=== PATIENT | male | born 1955 | race Caucasian/White ===

== ENCOUNTER → 2016-09-01 | Outpatient (REF) | payer OTHER ==
[2016-09-01 18:03] LABS: FOLATE > 24.0 NG/ML; VITAMIN B12 LEVEL 501 PG/ML
== END ==
LOC: M LAB REF 16:25
PROVIDERS: ATTEND Internal Medicine
DX: R41.3 Other amnesia (principal); E78.2 Mixed hyperlipidemia

== ENCOUNTER → 2016-11-17 | Outpatient (CLI) | payer OTHER ==
[2016-11-19 00:07] LABS: Lyme Disease IgG/IgM Antibodie <0.91 ISR (0.00-0.90); Lyme Disease IgM Ab Quantitati <0.80 index (0.00-0.79)
== END ==
LOC: M LAB 09:01
PROVIDERS: ATTEND Internal Medicine Cardiovascular Disease
DX: A69.20 Lyme disease, unspecified (principal)

== ENCOUNTER → 2017-01-23 | Outpatient (CLI) | payer OTHER ==
[2017-01-23 13:16] LABS: MEAN CORPUSCULAR HEMOGLOBIN 31.8 pg (27.0-33.0); MEAN CORPUSCULAR HGB CONC 34.1 g/dl (32.0-36.5); MEAN CORPUSCULAR VOLUME 93.3 fl (80.0-96.0); RED CELL DISTRIBUTION WIDTH 13.1 % (11.5-14.5); WHITE BLOOD COUNT 10.2 K/mm3 (4.0-10.0)
[2017-01-23 13:38] LABS: EOSINOPHILS 3 % (0-5)
[2017-01-24 15:12] LABS: PSA TOTAL 0.9 ng/mL (0.0-4.0)
== END ==
LOC: M WUC 12:17
PROVIDERS: ATTEND Physician Assistant
DX: R35.0 Frequency of micturition (principal)

== ENCOUNTER → 2017-02-26 | Outpatient (REF) | payer OTHER | LOC: M SMT 13:32 | PROVIDERS: ATTEND Nurse Practitioner Women's Health | DX: R30.0 Dysuria (principal) ==

== ENCOUNTER → 2017-03-03 | Outpatient (REF) | payer OTHER | LOC: M LAB REF 17:36 | PROVIDERS: ATTEND Internal Medicine | DX: E78.00 Pure hypercholesterolemia, unspecified (principal) ==

== ENCOUNTER → 2017-04-07 | Outpatient (REF) | payer OTHER ==
[2017-04-07 15:16] LABS: BASO # 0.1 10^3/uL (0.0-0.2); BASO % 0.9 % (0.0-1.0); EOS # 0.4 10^3/uL (0.0-0.50); EOS % 5.7 % (0.0-3.0); IMMATURE GRANULOCYTE % 0.3 % (0-0); LYMPH # 1.5 10^3/uL (1.5-4.5); LYMPH % 23.5 % (24.0-44.0); MEAN CORPUSCULAR HEMOGLOBIN 31.5 pg (27.0-33.0); MEAN CORPUSCULAR HGB CONC 33.4 g/dl (32.0-36.5); MEAN CORPUSCULAR VOLUME 94.2 fl (80.0-96.0); MONO # 0.8 10^3/uL (0.0-0.8); NEUTROPHILS # 3.7 10^3/uL (1.8-7.7); NEUTROPHILS % 57.6 % (36.0-66.0); PLATELET COUNT, AUTOMATED 306 10^3/uL (150-450); RED CELL DISTRIBUTION WIDTH 13.2 % (11.5-14.5); WHITE BLOOD COUNT 6.5 10^3/uL (4.0-10.0)
[2017-04-07 15:21] LABS: ADD MORPHOLOGY? NO
[2017-04-07 15:43] LABS: VITAMIN B12 LEVEL 474 PG/ML (247-911)
[2017-04-07 15:44] LABS: FOLATE > 24.0 NG/ML (>5.4)
[2017-04-07 16:16] LABS: ALBUMIN 3.6 GM/DL (3.2-5.2); ALBUMIN/GLOBULIN RATIO 0.92 (1.00-1.93); ALKALINE PHOSPHATASE 52 U/L (45-117); ALT/SGPT 24 U/L (12-78); ANION GAP 7 MEQ/L (8-16); AST/SGOT 22 U/L (15-37); BILIRUBIN,TOTAL 0.4 MG/DL (0.2-1.0); BLOOD UREA NITROGEN 13 MG/DL (7-18); CALCIUM LEVEL 9.2 MG/DL (8.8-10.2); CARBON DIOXIDE LEVEL 29 MEQ/L (21-32); CHLORIDE LEVEL 102 MEQ/L (98-107); CREATININE FOR GFR 0.89 MG/DL (0.70-1.30); GLOMERULAR FILTRATION RATE > 60.0 (>49); GLUCOSE, FASTING 107 MG/DL (80-110); POTASSIUM SERUM 4.5 MEQ/L (3.5-5.1); SODIUM LEVEL 138 MEQ/L (136-145); TOTAL PROTEIN 7.5 GM/DL (6.4-8.2)
[2017-04-11 08:07] LABS: VITAMIN E LEVEL 48.1 mg/L (5.3-17.5)
== END ==
LOC: M LABNEURO 10:02
PROVIDERS: ATTEND Psychiatry & Neurology Neurology
DX: R41.3 Other amnesia (principal)

== ENCOUNTER → 2017-05-27 | Outpatient (CLI) | payer OTHER ==
--- NOTE | 2017-05-27 11:03 | REP ---
Clinical: Rule out foreign body. Technique: AP, Ayoub, lateral, Rheese, SMV views of the orbits. Findings: The osseous structures are normal. Dental amalgam is identified. No further radiodense foreign body is appreciated. Impression: No significant orbital foreign body material identified. Signed by Jacques De La Cruz MD 05/27/2017 10:55 A
== END ==
LOC: M ADAMS 09:52
PROVIDERS: ATTEND Psychiatry & Neurology Neurology
DX: T15.90XA Foreign body on external eye, part unspecified, unspecified eye, initial encounter (principal); Y92.89 Other specified places as the place of occurrence of the external cause

== ENCOUNTER → 2018-02-23 | Outpatient (REF) | payer OTHER ==
[2018-02-25 08:15] LABS: LDL DIRECT 214 mg/dL (0-99)
== END ==
LOC: M LAB REF 20:32
DX: E78.1 Pure hyperglyceridemia (principal)
CPT/HCPCS: 83721

== ENCOUNTER → 2018-11-12 | Outpatient (REF) | payer MEDICARE, OTHER ==
[2018-11-13 08:06] LABS: LDL DIRECT 181 mg/dL (0-99)
== END ==
LOC: M LAB REF 13:36
PROVIDERS: ATTEND Internal Medicine
DX: E78.00 Pure hypercholesterolemia, unspecified (principal)

== ENCOUNTER → 2019-05-24 | Outpatient (REF) | payer MEDICARE, OTHER ==
[2019-05-25 08:07] LABS: LDL DIRECT 166 mg/dL (0-99)
== END ==
LOC: M LAB REF 13:53
PROVIDERS: ATTEND Internal Medicine
DX: E78.00 Pure hypercholesterolemia, unspecified (principal)

== ENCOUNTER → 2020-04-09 | Outpatient (REF) | payer MEDICARE, OTHER ==
[2020-04-11 04:11] LABS: LDL DIRECT 154 mg/dL (0-99)
== END ==
LOC: M LAB REF 16:25
PROVIDERS: ATTEND Internal Medicine
DX: E78.00 Pure hypercholesterolemia, unspecified (principal)

== ENCOUNTER → 2021-02-28 | Outpatient (REF) | payer MEDICARE, OTHER ==
[2021-03-02 08:09] LABS: LDL DIRECT 95 mg/dL (0-99)
== END ==
LOC: M LAB REF 17:04
PROVIDERS: ATTEND Internal Medicine
DX: E78.00 Pure hypercholesterolemia, unspecified (principal)

== ENCOUNTER → 2021-06-05 | Outpatient (REF) | payer MEDICARE, OTHER ==
[2021-06-07 08:12] LABS: LDL DIRECT 114 mg/dL (0-99)
== END ==
LOC: M LAB REF 16:51
PROVIDERS: ATTEND Internal Medicine
DX: E78.2 Mixed hyperlipidemia (principal)

== ENCOUNTER → 2021-09-11 | Outpatient (REF) | payer MEDICARE, OTHER ==
[2021-09-13 04:08] LABS: LDL DIRECT 78 mg/dL (0-99)
== END ==
LOC: M LAB REF 16:13
PROVIDERS: ATTEND Internal Medicine
DX: E78.2 Mixed hyperlipidemia (principal)

== ENCOUNTER → 2021-12-25 | Outpatient (REF) | payer MEDICARE, OTHER ==
[2021-12-27 08:10] LABS: LDL DIRECT 63 mg/dL (0-99)
== END ==
LOC: M LAB REF 16:20
PROVIDERS: ATTEND Internal Medicine
DX: E78.2 Mixed hyperlipidemia (principal)

== ENCOUNTER → 2022-06-16 | Outpatient (REF) | payer MEDICARE, OTHER | LOC: M LAB REF 16:10 | PROVIDERS: ATTEND Internal Medicine | DX: E78.2 Mixed hyperlipidemia (principal) ==

== ENCOUNTER → 2023-02-10 | Outpatient (REF) | payer MEDICARE, OTHER | LOC: M LAB REF 16:27 | PROVIDERS: ATTEND Internal Medicine | DX: R53.83 Other fatigue (principal); R68.83 Chills (without fever) ==

== ENCOUNTER → 2023-02-13 | Outpatient (REF) | payer MEDICARE, OTHER | LOC: M LAB REF 16:13 | PROVIDERS: ATTEND Internal Medicine | DX: D61.818 Other pancytopenia (principal); R50.9 Fever, unspecified ==

== ENCOUNTER → 2023-05-20 | Day surgery (SDC) | payer MEDICARE, OTHER ==
[~2023-05-20] VITALS: Ht 162.6 cm; Wt 60.3 kg
[~2023-05-20] MED LIST: ALLO100T PO; ASPI81TA26 PO; FLUT50SP17; FOLI1TAB11 PO; LEXA1TAB PO; MONT10TA97 PO; NS 1,000 ML IV ONE; OMEP40CA5 PO; ROSU40TA4 PO; SOTA80TA32 PO; propofoL 200 MG/20 ML VIAL As Ordered ONE
[2023-05-20 07:54] VITALS: TEMP 97.9
[2023-05-20 08:10] VITALS: BP 129/86; O2SAT 97
== END | disposition home or self-care (01) ==
LOC: M OPP 06:32
PROVIDERS: ATTEND Internal Medicine Gastroenterology
DX: Z12.11 Encounter for screening for malignant neoplasm of colon (principal); K64.0 First degree hemorrhoids; K57.30 Diverticulosis of large intestine without perforation or abscess without bleeding; Z79.82 Long term (current) use of aspirin; Z79.899 Other long term (current) drug therapy; I10 Essential (primary) hypertension; E78.5 Hyperlipidemia, unspecified; Z95.3 Presence of xenogenic heart valve

== ENCOUNTER → 2023-06-16 | Outpatient (REF) | payer MEDICARE, OTHER ==
[~2023-06-16] MED LIST changes: -FLUT50SP17; +FLUTISP; -NS 1,000 ML IV ONE; -propofoL 200 MG/20 ML VIAL As Ordered ONE
[2023-06-18 04:08] LABS: LDL DIRECT 90 mg/dL (0-99)
== END ==
LOC: M LAB REF 16:20
PROVIDERS: ATTEND Internal Medicine
DX: E78.00 Pure hypercholesterolemia, unspecified (principal)

== ENCOUNTER → 2023-10-14 | Outpatient (CLI) | payer MEDICARE, OTHER | LOC: M CARPUL 08:25 | PROVIDERS: ATTEND Internal Medicine | DX: I08.3 Combined rheumatic disorders of mitral, aortic and tricuspid valves (principal); I77.810 Thoracic aortic ectasia ==

== ENCOUNTER → 2023-12-08 | Outpatient (REF) | payer MEDICARE, OTHER ==
[~2023-12-08] MED LIST changes: -ROSU40TA4 PO; +ROSU40TA63 PO
[2023-12-10 08:12] LABS: LDL DIRECT 75 mg/dL (0-99)
== END ==
LOC: M LAB REF 18:28
PROVIDERS: ATTEND Internal Medicine
DX: E78.2 Mixed hyperlipidemia (principal)

== ENCOUNTER → 2024-06-17 | Outpatient (REF) | payer MEDICARE, OTHER ==
[~2024-06-17] MED LIST changes: -ROSU40TA63 PO; +ROSU40TA81 PO
[2024-06-19 03:47] LABS: LDL DIRECT 98 mg/dL (<100)
== END ==
LOC: M LAB REF 16:33
PROVIDERS: ATTEND Internal Medicine
DX: E78.2 Mixed hyperlipidemia (principal)

== ENCOUNTER → 2025-04-05 | Outpatient (REF) | payer MEDICARE, OTHER ==
[2025-04-06 17:07] LABS: LDL DIRECT 73 mg/dL (<100)
== END ==
LOC: M LAB REF 11:47
PROVIDERS: ATTEND Internal Medicine
DX: E78.2 Mixed hyperlipidemia (principal)

== ENCOUNTER → 2025-04-14 | Outpatient (CLI) | payer MEDICARE, OTHER ==
[2025-04-14 15:23] LABS: C REACTIVE PROTEIN QUANTITATIV < 0.50 MG/DL (<1.0); CHOLESTEROL LEVEL 175 MG/DL (<200); CHOLESTEROL RISK RATIO 3.02 (<5); GLUCOSE,RANDOM 87 MG/DL (LESS THAN 200); NON-HDL-C 117.1 MG/DL; TRIGLYCERIDES LEVEL 534 MG/DL (<150)
[2025-04-14 15:24] LABS: BASO # 0.1 10^3/uL (0.0-0.2); BASO % 0.7 % (0.0-1.0); EOS # 0.4 10^3/uL (0.0-0.5); EOS % 6.3 % (0.0-3.0); LYMPH # 1.8 10^3/uL (1.5-5.0); LYMPH % 25.9 % (24.0-44.0); MONO # 0.7 10^3/uL (0.0-0.8); MONO % 10.1 % (2.0-8.0); NEUTROPHILS # 4.0 10^3/uL (1.5-8.5); NEUTROPHILS % 56.6 % (36.0-66.0); PLATELET COUNT, AUTOMATED 329 10^3/uL (150-450)
[2025-04-14 15:30] LABS: ERYTHROCYTE SEDIMENTATION RATE 36 mm/hr (0-20); INR 0.99
[2025-04-14 16:08] LABS: ESTIMATED AVERAGE GLUCOSE 108.0 MG/DL (60-110)
[2025-04-16 07:03] LABS: T P ELECTROPHORESIS SO 7.2 g/dL (6.1-8.1)
[2025-04-18 07:26] LABS: ALBUMIN SPEP 4.0 g/dL (3.8-4.8); ALPHA-1-GLOBULINS SO 0.3 g/dL (0.2-0.3); ALPHA-2-GLOBULINS SO 0.8 g/dL (0.5-0.9); BETA 2 GLOBULIN 0.5 g/dL (0.2-0.5); BETA-GLOBULIN SO 0.6 g/dL (0.4-0.6); GAMMA GLOBULINS SO 1.1 g/dL (0.8-1.7)
[2025-04-19 18:26] LABS: HEMOGLOBINOPATHY EVAL HCT 43.7 % (38.5-50.0); HEMOGLOBINOPATHY EVAL HGB 13.7 g/dL (13.2-17.1); HEMOGLOBINOPATHY EVAL HGB A 97.7 % (>96.0); HEMOGLOBINOPATHY EVAL HGB A2 2.3 % (2.0-3.2); HEMOGLOBINOPATHY EVAL HGB F 0.0 % (<2.0); HEMOGLOBINOPATHY EVAL MCH 30.9 pg (27.0-33.0); HEMOGLOBINOPATHY EVAL MCV 98.4 fL (80.0-100.0); HEMOGLOBINOPATHY EVAL RBC 4.44 Mill/uL (4.20-5.80); HEMOGLOBINOPATHY EVAL RDW 12.5 % (11.0-15.0)
== END ==
LOC: M PLALAB 12:09
PROVIDERS: ATTEND Physician Assistant
DX: H34.232 Retinal artery branch occlusion, left eye (principal); Z79.899 Other long term (current) drug therapy; Z11.3 Encounter for screening for infections with a predominantly sexual mode of transmission; Z72.89 Other problems related to lifestyle

== ENCOUNTER → 2025-05-05 | Outpatient (CLI) | payer MEDICARE, OTHER | LOC: M RAD 12:57 | PROVIDERS: ATTEND Physician Assistant | DX: H34.232 Retinal artery branch occlusion, left eye (principal); I65.23 Occlusion and stenosis of bilateral carotid arteries ==

== ENCOUNTER → 2025-05-23 | Outpatient (CLI) | payer MEDICARE, OTHER | LOC: M SLEEP 20:00 | PROVIDERS: ATTEND Physician Assistant | DX: R06.83 Snoring (principal) ==

== ENCOUNTER → 2025-06-06 | Outpatient (REF) | payer MEDICARE, OTHER ==
[2025-06-08 07:32] LABS: LDL DIRECT 72 mg/dL (<100)
== END ==
LOC: M LAB REF 17:29
PROVIDERS: ATTEND Internal Medicine
DX: E78.2 Mixed hyperlipidemia (principal)